=== PATIENT | female | born 1995 | race Caucasian/White ===

== ENCOUNTER 2020-12-14 15:39 | Emergency (ER) | payer OTHER ==
[~2020-12-14 15:39] MED LIST: COLACE 100MG C100 MG PO; FEOSOL325 MG PO; IBUPROFEN600 MG PO; LORTAB 5-325 M1 EACH PO; PRENATA CHEWAB1 EACH PO
[2020-12-14 16:35] LABS: HEMOGLOBIN 13.4 gm/dl (12.3-15.3); RED BLOOD COUNT 4.96 M/UL (4.00-5.10); WHITE BLOOD COUNT 5.5 K/UL (4.5-11.0)
[2020-12-14 16:57] LABS: BUN/CREATININE RATIO 6 (0-10)
[2020-12-14] MEDS ORDERED: DICLEGIS DR 101 EACH PO (18:37)
[2020-12-14] MEDS ORDERED: MACROBID 100 M100 MG PO (18:37)
== END 2020-12-14 19:12 | disposition home or self-care (01) ==
LOC: ER1 15:39
PROVIDERS: Physician Assistant Medical
DX: O23.41 Unspecified infection of urinary tract in pregnancy, first trimester (principal); Z91.041 Radiographic dye allergy status; Z88.8 Allergy status to other drugs, medicaments and biological substances; Z3A.13 13 weeks gestation of pregnancy
CPT/HCPCS: 80053; 81001; 85025; 87086; 87661; 96374; 99284; J2405

== ENCOUNTER 2021-05-25 05:47 | Inpatient (IN) | payer OTHER ==
[~2021-05-25 05:47] MED LIST changes: +DICLEGIS DR 101 EACH PO; +MACROBID 100 M100 MG PO
[2021-05-25 06:43] LABS: RED BLOOD COUNT 4.46 M/UL (4.00-5.10); WHITE BLOOD COUNT 9.7 K/UL (4.5-11.0)
[2021-05-25 06:44] LABS: HEMOGLOBIN 9.6 gm/dl (12.3-15.3)
[2021-05-25 06:59] LABS: BUN/CREATININE RATIO 6 (0-10)
[2021-05-26 04:10] LABS: HEMOGLOBIN 7.3 gm/dl (12.3-15.3)
[2021-05-27] MEDS ORDERED: COLACE100 MG PO (13:59)
[2021-05-27] MEDS ORDERED: HEMOCYTE324 MG PO (13:59)
[2021-05-27] MEDS ORDERED: PERCOCET 5/325 T1 EA PO (13:59)
[2021-05-27] MEDS ORDERED: IBUPROFEN800 MG PO (13:59)
== END 2021-05-27 15:03 | disposition home or self-care (01) | DRG 788 ==
LOC: OB 05:47
PROVIDERS: ADMIT Obstetrics & Gynecology
PROC: 4A1HXCZ Monitoring of Products of Conception, Cardiac Rate, External Approach (ICD-10-PCS; 2021-05-25)
PROC: 10D00Z1 Extraction of Products of Conception, Low, Open Approach (ICD-10-PCS; principal; 2021-05-25 07:30)
DX: O34.211 Maternal care for low transverse scar from previous cesarean delivery (principal); Z3A.37 37 weeks gestation of pregnancy; Z37.0 Single live birth; Z20.822 Contact with and (suspected) exposure to COVID-19; O24.420 Gestational diabetes mellitus in childbirth, diet controlled; Z88.8 Allergy status to other drugs, medicaments and biological substances; Z91.041 Radiographic dye allergy status
CPT/HCPCS: 36415; 80053; 81001; 82800; 85014; 85018; 85025; C9113; J0690; J1885; J2274; J2370; J2405; J2590; J3010; J7030; J7120